=== PATIENT | male | born 1940 | race Caucasian/White ===

== ENCOUNTER 2017-10-17 09:46 | Day surgery (SDC) | payer MEDICARE ==
[~2017-10-17] VITALS: Ht 175.3 cm; Wt 113.8 kg
[~2017-10-17 09:46] MED LIST: 2 BP MEDS; ALLO100; ALLO100 PO; ALLO300 PO; AMLO10 PO; AMLO5 PO; BENZ100A PO; BP MEDS; CYCL10 PO; DOCU100; FERR325; HYDACE5 PO; HYDACE5325 PO; LISI20 PO; NAPR220 PO; OXYACE5T; RXHYD5325 PO; WARF4; WARF5 PO; ZESTORETIC 20-251 EA
[2017-10-17] MEDS ORDERED: LOSARTAN-HCTZ1 EAC1 PO (10:17)
== END 2017-10-17 11:56 | disposition home or self-care (01) ==
LOC: ORSCSDS 09:46
PROVIDERS: Orthopaedic Surgery
PROC: 01N50ZZ Release Median Nerve, Open Approach (ICD-10-PCS; principal; 2017-10-17 11:00)
DX: G56.02 Carpal tunnel syndrome, left upper limb (principal); I10 Essential (primary) hypertension; E66.01 Morbid (severe) obesity due to excess calories; Z68.37 Body mass index [BMI] 37.0-37.9, adult; Z79.899 Other long term (current) drug therapy
CPT/HCPCS: J0171; J0690; J2250; J2405; J7120

== ENCOUNTER → 2018-09-26 | Outpatient (CLI) | payer MEDICARE ==
[~2018-09-26] MED LIST changes: +LOSARTAN-HCTZ1 EAC1 PO
== END | disposition home or self-care (01) ==
LOC: LAB SHORT 13:23 → PLD 13:23
DX: C44.519 Basal cell carcinoma of skin of other part of trunk (principal)
CPT/HCPCS: 88305; 88342

== ENCOUNTER → 2018-11-05 | Outpatient (CLI) | payer MEDICARE | END | disposition home or self-care (01) | LOC: LAB SHORT 11:38 → PLD 11:38 | DX: D49.2 Neoplasm of unspecified behavior of bone, soft tissue, and skin (principal) | CPT/HCPCS: 88305 ==

== ENCOUNTER 2020-12-15 09:35 | Inpatient (IN) | payer MEDICARE ==
[~2020-12-15] VITALS: Ht 177.8 cm; Wt 111.0 kg
[2020-12-15 09:59] LABS: BASOPHILS ABSOLUTE AUTO 0.05 K/mm3 (0.00-0.23); BASOPHILS PERCENT AUTO 1 % (0-2); EOSINOPHILS ABSOLUTE AUTO 0.16 K/mm3 (0.00-0.68); EOSINOPHILS PERCENT AUTO 2 % (0-6); Hematocrit 40.8 % (37.0-53.0); Hemoglobin 14.3 g/dL (13.5-17.5); IMMATURE GRAN ABSOLUTE AUTO 0.04 K/mm3 (0.00-0.10); IMMATURE GRAN PERCENT AUTO 0 % (0-1); LYMPHOCYTES PERCENT AUTO 32 % (21-46); MONOCYTES ABSOLUTE AUTO 0.86 K/mm3 (0.16-1.47); MONOCYTES PERCENT AUTO 10 % (4-13); Mean Corpuscular HGB 31.7 pg (26.0-34.0); Mean Corpuscular Volume 91 fL (80-100); Mean Platelet Volume 10.1 fL (9.1-12.4); NEUTROPHILS ABSOLUTE AUTO 4.98 K/mm3 (1.96-9.15); NEUTROPHILS PERCENT AUTO 55 % (41-73); Platelet Count 184 K/mm3 (150-400); RDW Coefficient Variation 13.6 % (11.7-14.2); RDW Standard Deviation 45.1 fL (35.1-46.3); Red Blood Cell Count 4.51 M/mm3 (4.30-5.90); White Blood Cell Count 8.99 K/mm3 (4.00-11.30)
[2020-12-15 10:15] LABS: International Normalized Ratio 1.58; Prothrombin Time Results 16.6 Sec (9.7-11.5)
[2020-12-15 10:21] LABS: Albumin, Blood 3.8 g/dL (3.4-5.0); Albumin/Globulin Ratio 1.2 (0.8-1.8); Bilirubin, Total 0.5 mg/dL (0.1-1.0); Bun/Creatinine Ratio 20.8 (12.0-20.0); Calcium, Blood 8.8 mg/dL (8.5-10.1); Creatinine, Blood 1.25 mg/dL (0.60-1.20); Globulin, Blood 3.3 g/dL (2.2-4.0); Total Protein, Blood 7.1 g/dL (6.4-8.2); Troponin I 0.125 ng/mL (0.000-0.040)
[2020-12-15] MEDS ORDERED: LOSARTAN POTAS100 MG PO (11:51)
[2020-12-15] MEDS ORDERED: JANTOVEN5 M2 (11:52)
[2020-12-15] MEDS ORDERED: TRAM50 PO (11:53)
[2020-12-15 12:37] LABS: SARS-Cov-2 (COVID-19) PCR, MMC NEGATIVE (NEGATIVE)
--- NOTE | 2020-12-15 17:48 | NUR ---
SHIFT SUMMARY ED ADMIT AFTER LUNCH. PATIENT DENIES PAIN, NAUSEA, AND SHORTNESS OF BREATH. REPORTS MILD CHEST PAIN WITH ACTIVITY. UP SBA TO BR, OR URINAL AT BEDSIDE. NPO AT MIDNIGHT FOR ANGIO IN AM. HEPARIN DRIP RUNNING AT 13 U/KG. TELEMETRY SHOWING NSR AT 80 PER MANAGER OF WAREHOUSE. SON VISITED IN AFTERNOON.
[2020-12-16 02:03] LABS: BASOPHILS ABSOLUTE AUTO 0.05 K/mm3 (0.00-0.23); BASOPHILS PERCENT AUTO 1 % (0-2); EOSINOPHILS ABSOLUTE AUTO 0.18 K/mm3 (0.00-0.68); EOSINOPHILS PERCENT AUTO 2 % (0-6); Hematocrit 37.3 % (37.0-53.0); IMMATURE GRAN ABSOLUTE AUTO 0.03 K/mm3 (0.00-0.10); IMMATURE GRAN PERCENT AUTO 0 % (0-1); LYMPHOCYTES ABSOLUTE AUTO 2.45 K/mm3 (0.84-5.20); LYMPHOCYTES PERCENT AUTO 31 % (21-46); MONOCYTES ABSOLUTE AUTO 0.77 K/mm3 (0.16-1.47); MONOCYTES PERCENT AUTO 10 % (4-13); Mean Corpuscular HGB 31.9 pg (26.0-34.0); Mean Corpuscular HGB Conc 34.9 g/dL (31.5-36.5); Mean Corpuscular Volume 91 fL (80-100); NEUTROPHILS PERCENT AUTO 56 % (41-73); Platelet Count 165 K/mm3 (150-400); RDW Coefficient Variation 13.6 % (11.7-14.2); RDW Standard Deviation 46.3 fL (35.1-46.3); Red Blood Cell Count 4.08 M/mm3 (4.30-5.90); White Blood Cell Count 7.88 K/mm3 (4.00-11.30)
[2020-12-16 02:22] LABS: Albumin, Blood 3.1 g/dL (3.4-5.0); Bilirubin, Total 0.3 mg/dL (0.1-1.0); Bun/Creatinine Ratio 19.4 (12.0-20.0); Calcium, Blood 8.5 mg/dL (8.5-10.1); Creatinine, Blood 1.24 mg/dL (0.60-1.20); Globulin, Blood 3.1 g/dL (2.2-4.0); Potassium, Blood 3.8 mmol/L (3.5-5.5); Total Protein, Blood 6.2 g/dL (6.4-8.2)
--- NOTE | 2020-12-16 06:28 | NUR ---
SHIFT SUMMARY PT IS A 80 Y/O MALE, ADMITTED FOR AN NSTEMI. HE IS A&O X 4, INDEPENDENT IN THE ROOM. PT DID REPORT MILD CHEST PAIN WITH EXERTION, BUT DENIED THE NEED FOR ANY MEDICATIONS. NO C/O NAUSEA OR SOB. VITAL SIGNS STABLE. TELE SHOWED NSR/SB IN THE 50-60S. PT RECEIVING NS @ 100 ML/HR, AND CONTINUOUS HEPARIN INFUSION AT 11/U/KG/HR OR 19.8 ML/HR. NO ACUTE CHANGES IN PT CONDITION NOTED DURING THE NIGHT. WILL CONTINUE TO MONITOR AND TREAT PER EMAR UNTIL HAND OFF TO DAY SHIFT RN.
--- NOTE | 2020-12-16 09:58 | NUR ---
REPORT CALLED TO MANUFACTURING ASSISTANTJOHN.
--- NOTE | 2020-12-16 11:00 | NUR ---
SINGER SONGWRITER TRANSFER Pt to ICU 4 from construction craft laborer. Pt has right radial site with 12 cc of air per construction craft laborer nurse, TR band deflation to be started after 3 hours. Pt denies CP or pressures. A/O X4, calm, cooperative, and cheerful. Started on NS 125 ML/HR per provider order, as stated by construction craft laborer nurse. Lung sounds clear, on RA, SPO2 > 90%. Call light within reach. VSS. NSR.
--- NOTE | 2020-12-16 15:36 | NUR ---
UPDATE TR BAND REMAINS IN PLACE, 6 CC OF AIR IN BAND. SEE HR FLOWSHEET FOR DETAIL. TR BAND HAS TO BE REINFILATED TWICE DUE TO SCANT AMOUNT OF BLOOD DISCHARGE FROM SITE. PT DENIES NUMBNESS, TINGLING, OR PAIN. NO CP OR NAUSEA. VSS. Pt calm, cheerful, and able to use call light.
--- NOTE | 2020-12-16 16:20 | NUR ---
Update- Dr. Jeffery Provider at bedside. Updated pt on current care plan. Possible discharge today. Air removed from TR band, pt tolerated well, no hematoma. TR Band will remain in place for another HR. NS stopped, total volume infused 760. Dr. Jeffery discussed discharge plan with pt and son. Per provider, EKG completed. See chart, normal sinus rhythm. VSS. NSR. Pt calm and cooperative.
--- NOTE | 2020-12-16 17:50 | NUR ---
Shift Summary TR band removed, opsite applied, pt denies pain, site soft, non-tender and no hematoma. Denies CP/Nausea. Son at bedside. Pt remains A/O X 4, calm and cooperative. On RA. Right hand IV removed per pt request. Left wrist IV saline locked. Pt able to use urinal, clear/yellow urine, see I/O. NSR. VSS.
--- NOTE | 2020-12-16 18:33 | NUR ---
Education Pt educated on heart disease prevention, radial site care, atherosclerosis, heart healthy diet, and angiogram. Pt and son both state understanding. Pts right radial site opsite c/d/i and board reamins in place. Pt make aware of not flaxing/bending affected arm or pulling/pushing heavy onjects.
--- NOTE | 2020-12-16 23:41 | NUR ---
ASSUMED CARE AT 1900 PT IS ALERT/ORIENTED X4 AND ABLE TO MAKE HIS NEEDS KNOWN. AFEBRILE. SPO2 >95% ON RA. HR 70'S. BP 133/68. NO C/O CHEST PAIN, DYSPNEA, OR NAUSEA. RT RADIAL SITE SHOWS NO SIGNS OF BLEEDING OR HEMATOMA. TEGADERM DRESSING IN PLACE, TR BAND REMOVED AT 1730. SEE SHIFT ASSESSMENT FOR FULL ASSESSMENT. DR ROGERS IN TO SEE PT AND PROVIDED DISCHARGE ORDERS FOR PT TO LEAVE TONIGHT.
--- NOTE | 2020-12-16 23:48 | NUR ---
DISCHARGED PT DISCHARGED AT 2109. EDUCATION AND FOLLOW UP INFORMATION PROVIDED. RT FOREARM IV REMOVED. PT ABLE TO DRESS HIMSELF. TRANSPORTED TO EXIT VIA WHEELECHAIR AND SAFELY INTO FAMILIES CAR.
== END 2020-12-16 21:10 | disposition home or self-care (01) | DRG 247 ==
LOC: ER 09:35 → MEDS 11:05 → ICUE 12-16 09:57
PROVIDERS: Emergency Medicine; Nurse Practitioner Acute Care; ADMIT Internal Medicine
PROC: 027034Z Dilation of Coronary Artery, One Artery with Drug-eluting Intraluminal Device, Percutaneous Approach (ICD-10-PCS; principal; 2020-12-16)
PROC: B2111ZZ Fluoroscopy of Multiple Coronary Arteries using Low Osmolar Contrast (ICD-10-PCS; 2020-12-16)
PROC: 4A023N7 Measurement of Cardiac Sampling and Pressure, Left Heart, Percutaneous Approach (ICD-10-PCS; 2020-12-16)
PROC: 4A033BC Measurement of Arterial Pressure, Coronary, Percutaneous Approach (ICD-10-PCS; 2020-12-16)
DX: I21.4 Non-ST elevation (NSTEMI) myocardial infarction (principal); G89.29 Other chronic pain; M54.9 Dorsalgia, unspecified; E78.5 Hyperlipidemia, unspecified; I20.0 Unstable angina; Z20.822 Contact with and (suspected) exposure to COVID-19; E66.01 Morbid (severe) obesity due to excess calories; I12.9 Hypertensive chronic kidney disease with stage 1 through stage 4 chronic kidney disease, or unspecified chronic kidney disease; N18.30 Chronic kidney disease, stage 3 unspecified; E78.1 Pure hyperglyceridemia; M10.9 Gout, unspecified; I35.0 Nonrheumatic aortic (valve) stenosis; N40.0 Benign prostatic hyperplasia without lower urinary tract symptoms; Z96.653 Presence of artificial knee joint, bilateral; Z98.890 Other specified postprocedural states; Z88.8 Allergy status to other drugs, medicaments and biological substances; Z68.34 Body mass index [BMI] 34.0-34.9, adult; Z79.01 Long term (current) use of anticoagulants; Z79.899 Other long term (current) drug therapy; Z87.891 Personal history of nicotine dependence; Z91.19 Patient's noncompliance with other medical treatment and regimen; Z71.6 Tobacco abuse counseling; Z71.3 Dietary counseling and surveillance; Z86.718 Personal history of other venous thrombosis and embolism
CPT/HCPCS: 36415; 71045; 76937; 80053; 84484; 85025; 85347; 85379; 85610; 85730; 93005; 93010; 93306; 93454; 93571; 96365-59; 99152; 99153; 99285-25; A9270; C1725; C1769; C1874; C1887; C1894; C9600; J1644; J2250; J3010; J7030; J7050; Q9967; U0004

== ENCOUNTER 2021-02-19 18:04 | Inpatient (IN) | payer MEDICARE ==
[~2021-02-19] VITALS: Ht 177.8 cm; Wt 108.2 kg
[~2021-02-19 18:04] MED LIST changes: +JANTOVEN5 M2 PO; +LOSARTAN POTAS100 MG PO; +TRAM50 PO
[2021-02-19 20:31] LABS: BASOPHILS ABSOLUTE AUTO 0.01 K/mm3 (0.00-0.23); BASOPHILS PERCENT AUTO 0 % (0-2); EOSINOPHILS PERCENT AUTO 0 % (0-6); Hematocrit 39.1 % (37.0-53.0); Hemoglobin 13.8 g/dL (13.5-17.5); Mean Corpuscular HGB 31.4 pg (26.0-34.0); Mean Corpuscular HGB Conc 35.3 g/dL (31.5-36.5); Mean Corpuscular Volume 89 fL (80-100); Mean Platelet Volume 9.3 fL (9.1-12.4); Platelet Count 143 K/mm3 (150-400); RDW Coefficient Variation 13.6 % (11.7-14.2); Red Blood Cell Count 4.39 M/mm3 (4.30-5.90); White Blood Cell Count 4.38 K/mm3 (4.00-11.30)
[2021-02-19 20:35] LABS: IMMATURE GRAN ABSOLUTE AUTO 0.02 K/mm3 (0.00-0.10); IMMATURE GRAN PERCENT AUTO 1 % (0-1); LYMPHOCYTES ABSOLUTE AUTO 0.61 K/mm3 (0.84-5.20); LYMPHOCYTES PERCENT AUTO 14 % (21-46); MONOCYTES ABSOLUTE AUTO 0.44 K/mm3 (0.16-1.47); MONOCYTES PERCENT AUTO 10 % (4-13); NEUTROPHILS PERCENT AUTO 75 % (41-73)
[2021-02-19 20:56] LABS: Albumin, Blood 3.3 g/dL (3.4-5.0); Albumin/Globulin Ratio 0.9 (0.8-1.8); Bilirubin, Total 0.3 mg/dL (0.1-1.0); Bun/Creatinine Ratio 17.8 (12.0-20.0); Calcium, Blood 8.3 mg/dL (8.5-10.1); Creatinine, Blood 1.18 mg/dL (0.60-1.20); Globulin, Blood 3.8 g/dL (2.2-4.0); Potassium, Blood 4.1 mmol/L (3.5-5.5); Total Protein, Blood 7.1 g/dL (6.4-8.2); Troponin I 0.021 ng/mL (0.000-0.040)
[2021-02-19 22:07] LABS: International Normalized Ratio 1.62
[2021-02-20 06:19] LABS: BASOPHILS ABSOLUTE AUTO 0.01 K/mm3 (0.00-0.23); BASOPHILS PERCENT AUTO 0 % (0-2); EOSINOPHILS PERCENT AUTO 0 % (0-6); Hematocrit 36.4 % (37.0-53.0); Hemoglobin 12.9 g/dL (13.5-17.5); IMMATURE GRAN ABSOLUTE AUTO 0.02 K/mm3 (0.00-0.10); IMMATURE GRAN PERCENT AUTO 1 % (0-1); LYMPHOCYTES ABSOLUTE AUTO 0.55 K/mm3 (0.84-5.20); LYMPHOCYTES PERCENT AUTO 14 % (21-46); MONOCYTES PERCENT AUTO 5 % (4-13); Mean Corpuscular HGB 31.3 pg (26.0-34.0); Mean Corpuscular HGB Conc 35.4 g/dL (31.5-36.5); Mean Corpuscular Volume 88 fL (80-100); Mean Platelet Volume 9.8 fL (9.1-12.4); NEUTROPHILS ABSOLUTE AUTO 3.05 K/mm3 (1.96-9.15); NEUTROPHILS PERCENT AUTO 80 % (41-73); Platelet Count 130 K/mm3 (150-400); RDW Coefficient Variation 13.5 % (11.7-14.2); Red Blood Cell Count 4.12 M/mm3 (4.30-5.90); White Blood Cell Count 3.83 K/mm3 (4.00-11.30)
[2021-02-20 06:35] LABS: International Normalized Ratio 1.59; Prothrombin Time Results 16.7 Sec (9.7-11.5)
[2021-02-20 06:44] LABS: Alanine Aminotransfer (ALT/SGP 35 U/L (12-78); Albumin, Blood 2.8 g/dL (3.4-5.0); Albumin/Globulin Ratio 0.8 (0.8-1.8); Alk Phos 89 U/L (50-136); Anion Gap 7 mmol/L (6-16); Aspartate Aminotrans (AST/SGOT 46 U/L (12-37); Bilirubin, Total 0.3 mg/dL (0.1-1.0); Blood Urea Nitrogen 18 mg/dL (8-24); Bun/Creatinine Ratio 16.5 (12.0-20.0); CO2, Blood 22 mmol/L (21-32); Calcium, Blood 8.2 mg/dL (8.5-10.1); Chloride, Blood 97 mmol/L (98-108); Creatinine, Blood 1.09 mg/dL (0.60-1.20); Globulin, Blood 3.7 g/dL (2.2-4.0); Glomerular Filtration Rate >60 (60-); Glucose, Blood 128 mg/dL (70-99); Potassium, Blood 4.1 mmol/L (3.5-5.5); Sodium, Blood 126 mmol/L (136-145); Total Protein, Blood 6.5 g/dL (6.4-8.2)
[2021-02-20] MEDS ORDERED: WARF7.5 PO (22:25)
[2021-02-20] MEDS ORDERED: ATOR80 PO (22:26)
[2021-02-20] MEDS ORDERED: METO25ER PO (22:28)
[2021-02-20] MEDS ORDERED: CLOP75 PO (22:29)
[2021-02-21 05:11] LABS: International Normalized Ratio 1.76; Prothrombin Time Results 18.4 Sec (9.7-11.5)
--- NOTE | 2021-02-21 12:53 | NUR ---
Advance Directive education attempted/ Spiritual care visit conducted. Patient states that he has no interest in learning about or filling out an ACP instrument. Patient then talks at length about his childhood, then loss of many close family and friends and his family unit complications. I provide therapeutic listening and companionship. Patient responds well and shows signs of an elevated mood.
[2021-02-21] MEDS ORDERED: DEXA6 (14:53)
--- NOTE | 2021-02-21 15:04 | NUR ---
PT BEING DC THIS EVENING, PER MD ORDERS GO AHEAD AND GIVE IV REMDESIVER NOW PRIOR TO DC. PHARMACY VERFIED PT CAN HAVE DOSE NOW.
--- NOTE | 2021-02-21 18:08 | NUR ---
DISCHARGE SUMMARY PT DISCHARGED @ APPROX 1800 VIA WHEELCHAIR. IV REMOVED AND SITE APPEARED WNL. PT STABLE ON RA AND NO O2 NEEDED FOR DISCHARGE. PT REMAINED ABOVE 90% c EXERTION AND PROVIDED OK'D DISCHARGE. DISCHARGE PAPERWORK AND INSTRUCTIONS REVIEWED c PT, NEEDED RX FAXED TO [facility]. PT IS AWARE OF HIS APPOINTMENTS SCHEDULED AT [facility] TO FINISH HIS REMDESIVER ADMINISTRATIONS. PT STATED HE HAD ALL OF HIS BELONGINGS.
== END 2021-02-21 18:05 | disposition home or self-care (01) | DRG 177 ==
LOC: ER 18:04 → ERHOLD 22:38 → MEDS 02-20 17:16
PROVIDERS: Physician Assistant; ADMIT Internal Medicine
PROC: 8E0ZXY6 Isolation (ICD-10-PCS; principal; 2021-02-19)
PROC: 3E0DX3Z Introduction of Anti-inflammatory into Mouth and Pharynx, External Approach (ICD-10-PCS; 2021-02-19)
PROC: XW033E5 Introduction of Remdesivir Anti-infective into Peripheral Vein, Percutaneous Approach, New Technology Group 5 (ICD-10-PCS; 2021-02-20)
DX: U07.1 COVID-19 (principal); J12.82 Pneumonia due to coronavirus disease 2019; J96.01 Acute respiratory failure with hypoxia; E87.1 Hypo-osmolality and hyponatremia; I10 Essential (primary) hypertension; Z86.718 Personal history of other venous thrombosis and embolism; M10.9 Gout, unspecified; N40.0 Benign prostatic hyperplasia without lower urinary tract symptoms; E78.1 Pure hyperglyceridemia; E66.9 Obesity, unspecified; Z79.899 Other long term (current) drug therapy; Z96.653 Presence of artificial knee joint, bilateral; Z88.8 Allergy status to other drugs, medicaments and biological substances; Z68.34 Body mass index [BMI] 34.0-34.9, adult
CPT/HCPCS: 36415; 71045; 80053; 84145; 84484; 85025; 85610; 85730; 93005; 93010; 99285-25; A9270; J1650

== ENCOUNTER 2021-02-22 01:43 | Day surgery (SDC) | payer MEDICARE ==
[~2021-02-22 01:43] MED LIST changes: +ATOR80 PO; +CLOP75 PO; +DEXA6; +METO25ER PO; +WARF7.5 PO
--- NOTE | 2021-02-22 15:58 | NUR ---
WRAPPED IV WELL FOR TOMORROWS DOSE
== END 2021-02-22 15:46 | disposition home or self-care (01) ==
LOC: ATC 01:43
DX: U07.1 COVID-19 (principal); J12.82 Pneumonia due to coronavirus disease 2019; J96.01 Acute respiratory failure with hypoxia; I10 Essential (primary) hypertension; M10.9 Gout, unspecified; Z79.01 Long term (current) use of anticoagulants; Z88.8 Allergy status to other drugs, medicaments and biological substances; Z87.891 Personal history of nicotine dependence
CPT/HCPCS: 96365; 96366

== ENCOUNTER 2021-02-23 01:40 | Day surgery (SDC) | payer MEDICARE | END 2021-02-23 17:27 | disposition home or self-care (01) | LOC: ATC 01:40 | DX: U07.1 COVID-19 (principal); J96.01 Acute respiratory failure with hypoxia; J12.82 Pneumonia due to coronavirus disease 2019; I10 Essential (primary) hypertension; E78.1 Pure hyperglyceridemia; M10.9 Gout, unspecified; N40.0 Benign prostatic hyperplasia without lower urinary tract symptoms; Z87.891 Personal history of nicotine dependence; E66.9 Obesity, unspecified; Z86.718 Personal history of other venous thrombosis and embolism; Z79.01 Long term (current) use of anticoagulants; Z88.8 Allergy status to other drugs, medicaments and biological substances; Z96.653 Presence of artificial knee joint, bilateral | CPT/HCPCS: 96365 ==